=== PATIENT | female | born 1980 | race Caucasian/White ===

== ENCOUNTER → 2020-09-05 15:03 | Outpatient (CLI) | payer OTHER, SELFPAY ==
--- NOTE | ~2020-09-05 | MM_ITS ---
EXAMINATION: MM screening [facility] BI w rafael HISTORY: Screening TECHNIQUE: Craniocaudal and mediolateral oblique 3-D tomosynthesis images were obtained and synthetic 2-D images were generated. CAD analysis was submitted and interpreted. COMPARISON: 06/23/2019 BREAST PARENCHYMAL COMPOSITION: There are scattered areas of fibroglandular density. FINDINGS: There are clustered calcifications in the right breast. The left breast is stable without e vidence for malignancy. IMPRESSION: 1. Clustered right breast calcifications. 2. Magnification views are recommended. BI-RADS Category 0: Incomplete: Needs additional imaging evaluation. Reviewed, dictated and finalized at location A.
== END ==
PROVIDERS: PCP Family Medicine; Visit Provider Physician Assistant
DX: Z12.31 Encounter for screening mammogram for malignant neoplasm of breast (principal)
CPT/HCPCS: 77063; 77067

== ENCOUNTER → 2020-09-21 09:10 | Outpatient (CLI) | payer OTHER, SELFPAY ==
--- NOTE | ~2020-09-21 | MM_ITS ---
EXAMINATION: MM diagnostic mammo unilat RT HISTORY: Indeterminate right breast calcifications on screening mammogram TECHNIQUE: Additional images of the right breast were performed. CAD analysis was submitted and inter preted. COMPARISON: 09/05/2020, 06/23/2019 FINDINGS: There are grouped calcifications in the middle third of the outer breast at the 9:00 locati on 6 cm from the nipple and a anterior third of the slightly inner breast near the nipple. With magni fication, the outer breast calcifications appear coarse heterogeneous in morphology but not significa ntly changed since the 2019 comparison. Calcifications in the anterior third of the breast appear to be punctate and also without significant change since the comparison. No suspicious mass or architectural intern ural distortion are identified. IMPRESSION: 1. Probably benign right breast calcifications. 2. Recommend 6 month follow-up right diagnostic mammogram BI-RADS category 3, probably benign findings. Reviewed, dictated and finalized at location A.
== END ==
PROVIDERS: PCP Family Medicine; Visit Provider Physician Assistant
DX: R92.8 Other abnormal and inconclusive findings on diagnostic imaging of breast (principal)
CPT/HCPCS: 77065

== ENCOUNTER → 2021-04-16 09:21 | Outpatient (CLI) | payer OTHER, SELFPAY ==
--- NOTE | ~2021-04-16 | MMUS_ITS ---
EXAMINATION: MM diagnostic mammo unilat RT, US breast RT complete HISTORY: Six-month follow-up of probable benign right breast calcifications TECHNIQUE: ML view of right breast . Magnification views of right breast. CAD analysis was submitted and interpreted. High resolution complete right breast ultrasound was performed. COMPARISON: 09/21/2020 diagnostic right digital mammogram 09/05/2020, 06/23/2019 bilateral digital screening mammogram examinations BREAST PARENCHYMAL COMPOSITION: There are scattered areas of fibroglandular density. FINDINGS: MAMMOGRAPHIC FINDINGS: There are occasional solitary and grouped benign-appearing microcalcifications. No malignant calcific ation is evident. No suspicious mass, architectural distortion, skin thickening or retraction is evident. ULTRASOUND: 6:00 subareolar area: 3.5 x 2.2 x 3.8 mm probable septated cyst. 9:00 7 cm from nipple: Circumscribed 2.7 x 6.2 x 5.8 mm cyst with through transmission 10:00 7 cm from nipple: Parallel circumscribed oval 4.5 x 10 x 9.4 mm simple cyst 11:00 5 cm from nipple: 3.3 x 2.2 x 3 mm cyst 10-11:00 5 cm from nipple: 3 x 4.3 x 3.7 mm hypoechoic lesion without internal vascularity or posteri or shadowing 11:00 4 cm from nipple: 3.4 mm hypoechoic lesion without internal vascularity or posterior shadowing IMPRESSION: 1. Benign findings 2. Routine mammographic screening is recommended BI-RADS Category 2: Benign finding(s). Reviewed, dictated and finalized at location A. IMPRESSION: 1. Benign findings 2. Routine mammographic screening is recommended BI-RADS Category 2: Benign finding(s).
== END ==
PROVIDERS: PCP Family Medicine; Visit Provider Physician Assistant
DX: R92.8 Other abnormal and inconclusive findings on diagnostic imaging of breast (principal)
CPT/HCPCS: 76641; 77065

== ENCOUNTER → 2022-01-21 16:20 | Outpatient (CLI) | payer OTHER, SELFPAY ==
--- NOTE | ~2022-01-21 | MM_ITS ---
EXAMINATION: MM screening [facility] BI w rafael HISTORY: Screening mammogram TECHNIQUE: Craniocaudal and mediolateral oblique 3-D tomosynthesis images were obtained and synthetic 2-D images were generated. CAD analysis was submitted and interpreted. COMPARISON: 04/16/2021, 09/21/2020, 09/05/2020 BREAST PARENCHYMAL COMPOSITION: There are scattered areas of fibroglandular density. FINDINGS: Scattered benign-appearing calcifications are present. There is no evidence of suspicious m ass, calcification, or architectural distortion to suggest malignancy in either breast. There has bee n no suspicious interval change. IMPRESSION: 1. No mammographic evidence of malignancy. 2. Recommend routine screening mammography in one year. BI-RADS Category 2: Benign finding(s). Reviewed, dictated and finalized at location A. CONTENT SPECIALIST
== END ==
PROVIDERS: PCP Family Medicine; Visit Provider Physician Assistant
DX: Z12.31 Encounter for screening mammogram for malignant neoplasm of breast (principal)
CPT/HCPCS: 77063; 77067

== ENCOUNTER → 2023-01-26 07:15 | Outpatient (CLI) | payer OTHER, SELFPAY ==
--- NOTE | ~2023-01-26 | MM_ITS ---
EXAMINATION: MM screening [facility] BI w rafael HISTORY: Screening mammogram TECHNIQUE: Craniocaudal and mediolateral oblique 3-D tomosynthesis images were obtained and synthetic 2-D images were generated. CAD analysis was submitted and interpreted. COMPARISON: 01/21/2022, 04/16/2021, 09/21/2020, 09/05/2020 BREAST PARENCHYMAL COMPOSITION: There are scattered areas of fibroglandular density. FINDINGS: No suspicious mass, calcification, or architectural distortion are identified in either malena ast to suggest malignancy. There has been no suspicious interval change. IMPRESSION: 1. No mammographic evidence of malignancy. 2. Recommend routine screening mammography in one year. BI-RADS Category 1: Negative Reviewed, dictated and finalized at location A. CAL DESIGNER
== END ==
PROVIDERS: PCP Family Medicine; Visit Provider Physician Assistant
DX: Z12.31 Encounter for screening mammogram for malignant neoplasm of breast (principal)
CPT/HCPCS: 77063; 77067

== ENCOUNTER 2024-01-28 07:17 | Outpatient (CLI) | payer OTHER, SELFPAY ==
--- NOTE | ~2024-01-28 | MM_ITS ---
EXAMINATION: MM screening [facility] BI w rafael HISTORY: Screening mammogram TECHNIQUE: Craniocaudal and mediolateral oblique 3-D tomosynthesis images were obtained and synthetic 2-D images were generated. CAD analysis was submitted and interpreted. COMPARISON: 01/26/2023, 01/21/2022, 04/16/2021 BREAST PARENCHYMAL COMPOSITION:Not Dense. There are scattered areas of fibroglandular density. FINDINGS: No suspicious mass, calcification, or architectural distortion are identified in either malena ast to suggest malignancy. There has been no suspicious interval change. IMPRESSION: No mammographic evidence of malignancy. Recommend routine screening mammography in one year. BI-RADS Category 1: Negative Reviewed, dictated and finalized at location . E INSPECTOR
== END 2024-01-28 07:18 ==
PROVIDERS: PCP Physician Assistant; Visit Provider Physician Assistant
DX: Z12.31 Encounter for screening mammogram for malignant neoplasm of breast (principal)
CPT/HCPCS: 77063; 77067

== ENCOUNTER 2025-02-24 07:17 | Outpatient (CLI) | payer OTHER, SELFPAY ==
--- NOTE | ~2025-02-24 | MM_ITS ---
EXAMINATION: MM screening [facility] BI w rafael HISTORY: Screening TECHNIQUE: Craniocaudal and mediolateral oblique 3-D tomosynthesis images were obtained and synthetic 2-D images were generated. CAD analysis was submitted and interpreted. COMPARISON: Comparison to multiple prior studies sequentially, with oldest reviewed study dated 08/23. BREAST PARENCHYMAL COMPOSITION: Not dense: There are scattered areas of fibroglandular density. FINDINGS: No significant change to punctate benign-appearing bilateral breast calcifications. There i s no evidence of suspicious mass, calcification, or architectural distortion to suggest malignancy in either breast. There has been no suspicious interval change. IMPRESSION: 1. No mammographic evidence of malignancy. 2. Recommend routine screening mammography in one year. BI-RADS Category 2: Benign finding(s). Reviewed, dictated and finalized at location A.
== END 2025-02-24 07:18 | disposition home or self-care (01) ==
LOC: MICIMG 07:18
PROVIDERS: PCP Physician Assistant; Visit Provider Physician Assistant
DX: Z12.31 Encounter for screening mammogram for malignant neoplasm of breast (principal)
CPT/HCPCS: 77063; 77067